=== PATIENT | female | born 1960 | race Caucasian/White ===

== ENCOUNTER 2021-10-10 09:09 | Emergency (ER) | payer BC ==
[2021-10-10 09:18] VITALS: BP 178/92; PULSE 86; TEMP 98.3; BMI 28.3
== END 2021-10-10 12:58 | disposition home or self-care (01) ==
LOC: JER 09:09
DX: R20.2 Paresthesia of skin (principal)
CPT/HCPCS: 99281-25

== ENCOUNTER 2023-05-13 09:38 | Emergency (ER) | payer BC ==
[2023-05-13 09:45] VITALS: BP 162/73; PULSE 71; RESP 18; TEMP 98.2; BMI 30.5
[2023-05-13 11:33] LABS: BASO % 0.8 % (0-2.0); EOS % 1.2 % (0-4.5); HEMATOCRIT 41.2 % (32.4-45.2); LYMPH % 33.1 % (8-40); MCH 28.5 pg (25.7-33.7); MEAN CELL VOLUME 83.6 fl (80-96); MEAN PLT VOLUME 7.5 fl (7.5-11.1); MONO % 9.5 % (3.8-10.2); NEUT % 55.4 % (42.8-82.8); PLATELET COUNT 191 10^3/uL (134-434); RBC 4.92 M/mm3 (3.60-5.2); RDW 12.9 % (11.6-15.6); WHITE BLOOD COUNT 5.5 K/mm3 (4.0-10.0)
[2023-05-13 11:54] LABS: POTASSIUM 4.3 mmol/L (3.5-5.1)
[2023-05-13 11:56] LABS: CALCIUM 9.1 mg/dL (8.5-10.1)
[2023-05-13 11:57] LABS: BLOOD UREA NITROGEN 11.8 mg/dL (7-18)
[2023-05-13 12:00] LABS: CREATININE 0.7 mg/dL (0.55-1.3)
[2023-05-13 12:02] LABS: BILIRUBIN,TOTAL 0.8 mg/dL (0.2-1); TOT PROT 8.1 g/dl (6.4-8.2)
== END 2023-05-13 12:34 | disposition home or self-care (01) ==
LOC: JER 09:38 → JERFT 09:38
DX: R20.0 Anesthesia of skin (principal)
CPT/HCPCS: 36415; 80053; 84443; 84484; 85025; 99283-25